=== PATIENT | female | born 1995 | race Caucasian/White ===

== ENCOUNTER 2024-01-30 15:25 | Emergency (ER) | payer SELFPAY ==
[~2024-01-30] VITALS: Ht 157.5 cm; Wt 90.7 kg
[2024-01-30 15:25] VITALS: BP 136/93; PULSE 136; RESP 18; TEMP 97.7; O2SAT 100
[2024-01-30] MEDS ORDERED: BENADRYL ONE (15:32)
[2024-01-30] MEDS ORDERED: PEPCID IV ONE (15:32)
[2024-01-30] MEDS ORDERED: SOLU-MEDROL ONE (15:32)
[2024-01-30] MEDS: PEPCID IV STA (15:43)
[2024-01-30] MEDS: SOLU-MEDROL IV STA (15:43)
[2024-01-30] MEDS: BENADRYL IV STA (15:43)
[2024-01-30] MEDS ORDERED: EPIN0.3P3 IM (16:15)
[2024-01-30 16:17] VITALS: BP 134/81; PULSE 105; RESP 18; TEMP 97.7; O2SAT 100
== END 2024-01-30 16:21 | disposition home or self-care (01) ==
LOC: ER 15:25
DX: T78.2XXA Anaphylactic shock, unspecified, initial encounter (principal); Z90.49 Acquired absence of other specified parts of digestive tract; Z88.5 Allergy status to narcotic agent; Y92.89 Other specified places as the place of occurrence of the external cause
CPT/HCPCS: 99291; 96374; 96375; J1200; J2919; J3490; J2930

== ENCOUNTER 2024-02-25 19:17 | Emergency (ER) | payer SELFPAY ==
[~2024-02-25] VITALS: Ht 157.5 cm; Wt 90.7 kg
[2024-02-25 19:17] VITALS: BP 147/96; PULSE 123; RESP 24; TEMP 98.6; O2SAT 96
[~2024-02-25 19:17] MED LIST: EPIN0.3P3 IM
[2024-02-25] MEDS ORDERED: BENADRYL ONE (19:31)
[2024-02-25] MEDS ORDERED: SOLU-MEDROL ONE (19:31)
[2024-02-25] MEDS ORDERED: PEPCID IV ONE (19:32)
[2024-02-25] MEDS: BENADRYL IV STA (19:37)
[2024-02-25] MEDS: PEPCID IV STA (19:37)
[2024-02-25] MEDS ORDERED: DECADRON ONE (19:38)
[2024-02-25] MEDS ORDERED: DUONEB 0.5-3(2.5) MG/3 ML IH ONE (19:38)
[2024-02-25] MEDS: SOLU-MEDROL IV STA (19:38)
[2024-02-25] MEDS: DECADRON IH STA (19:44)
[2024-02-25 19:45] VITALS: PULSE 122; RESP 18; O2SAT 97
[2024-02-25] MEDS: DUONEB 0.5-3(2.5) MG/3 ML IH STA (19:45)
[2024-02-25 20:00] VITALS: PULSE 124; RESP 18; O2SAT 98
[2024-02-25 20:22] VITALS: BP 122/64; PULSE 94; RESP 24; TEMP 98.6; O2SAT 96
[2024-02-25] MEDS ORDERED: PRED20TA PO (20:23)
== END 2024-02-25 20:29 | disposition home or self-care (01) ==
LOC: ER 19:17
DX: T78.40XA Allergy, unspecified, initial encounter (principal); Z90.49 Acquired absence of other specified parts of digestive tract; Z88.5 Allergy status to narcotic agent; X58.XXXA Exposure to other specified factors, initial encounter
CPT/HCPCS: 99284; 96374; 96375; 94640; J1200; J1100; J2919; J3490; J2930

== ENCOUNTER 2024-02-28 18:38 | Emergency (ER) | payer SELFPAY ==
[~2024-02-28] VITALS: Ht 157.5 cm; Wt 90.7 kg
[~2024-02-28 18:38] MED LIST changes: +PRED20TA PO
[2024-02-28] MEDS ORDERED: SOLU-MEDROL IV STA (18:46)
[2024-02-28] MEDS ORDERED: PEPCID IV STA (18:46)
[2024-02-28] MEDS ORDERED: SOLU-MEDROL ONE (18:49)
[2024-02-28] MEDS ORDERED: PEPCID IV ONE (18:50)
[2024-02-28 18:51] VITALS: BP 136/102; PULSE 107; RESP 30; TEMP 97.7; O2SAT 97
[2024-02-28] MEDS ORDERED: PEPCID ONE (18:59)
[2024-02-28] MEDS: SOLU-MEDROL IM STA (19:03)
[2024-02-28] MEDS: PEPCID PO STA (19:04)
[2024-02-28 19:39] VITALS: BP 120/63; PULSE 88; RESP 30; TEMP 97.7; O2SAT 98
== END 2024-02-28 19:43 | disposition home or self-care (01) ==
LOC: ER 18:38 → EDBD 18:38 → ER 19:43
DX: L50.9 Urticaria, unspecified (principal); Z90.49 Acquired absence of other specified parts of digestive tract; Z88.5 Allergy status to narcotic agent; Z91.010 Allergy to peanuts
CPT/HCPCS: 99284; 96372; J2919; J3490; J2930

== ENCOUNTER 2024-03-11 02:40 | Emergency (ER) | payer SELFPAY ==
[~2024-03-11] VITALS: Ht 157.5 cm; Wt 95.3 kg
[2024-03-11 02:40] VITALS: BP 192/113; PULSE 120; RESP 18; TEMP 98.3; O2SAT 7
[2024-03-11 03:05] LABS: BASOPHIL # 0.1 10^3/uL (0.0-0.1); BASOPHIL % 0.6 % (0.1-1.2); EOSINOPHIL # 0.1 10^3/uL (0.0-0.2); EOSINOPHIL % 1.2 % (0.0-5.0); HEMATOCRIT(ML) 40.5 % (36.0-46.0); HEMOGLOBIN 13.1 g/dL (12.0-15.0); LYMPHOCYTES # 2.26 10^3/uL1 (1.0-4.8); MEAN CORP HGB 26.8 pg (26-34); MEAN CORP HGB CONCENTRATION 32.3 g/dL (33-36.5); MEAN CORP VOLUME 82.8 fL (78-100); MONOCYTES # 0.5 10^3/uL (0.3-0.8); MONOCYTES % 5.4 % (5.0-12.0); NEUTROPHIL # 6.1 10^3/uL (1.8-7.7); NEUTROPHILS % 67.7 % (41.0-85.0); PLATELET COUNT 255 10^3/uL (150-400); RED BLOOD CELL 4.89 10^6/uL (4.00-5.20); RED CELL DISTRIBUTION WIDTH 13.9 % (11.5-14.5); WHITE BLOOD CELL 9.1 10^3/uL (4.5-11.0)
[2024-03-11 03:08] LABS: +ADD MANUAL DIFF(NO CHRG) NO
[2024-03-11] MEDS ORDERED: NS 1000ML 1,000 ML ONE (03:08)
[2024-03-11] MEDS ORDERED: KEPPRA 100 ML IV ONE (03:08)
[2024-03-11 03:25] LABS: ALANINE AMINOTRANSFERASE(ML) 20 U/L (12-78); ALBUMIN(ML) 3.7 g/dL (3.4-5.0); ALBUMIN/GLOBULIN RATIO 1.057; ALKALINE PHOSPHATASE 112 U/L (50-136); ANION GAP 16.2; ASPARTATE AMINO TRANSFERASE 13 U/L (0-35); CALCIUM 8.9 mg/dL (8.4-10.5); CREATININE SERUM 1.06 mg/dL (0.59-1.40); EST GFR, NON-AA 61.3 (>/=60); GLUCOSE 114 mg/dL (74-106); POTASSIUM 4.2 mmol/L (3.6-5.2); SODIUM 137 mmol/L (132-145)
[2024-03-11 03:26] LABS: TROPONIN I HIGH SENSITIVITY < 4 ng/L (0-50)
[2024-03-11] MEDS: KEPPRA 100 ML IV STA (03:26)
[2024-03-11] MEDS: NS 1000ML 1,000 ML STA (03:27)
[2024-03-11 03:42] VITALS: BP 152/89; PULSE 96; RESP 18; TEMP 98.3; O2SAT 7
[2024-03-11 04:36] VITALS: BP 157/83; PULSE 80; RESP 18; TEMP 98.3; O2SAT 7
[2024-03-11] MEDS ORDERED: DECADRON ONE (04:36)
[2024-03-11] MEDS: DECADRON IV STA (04:39)
== END 2024-03-11 04:51 | disposition home or self-care (01) ==
LOC: EEVIPCON 02:40 → ER 02:40
DX: G40.409 Other generalized epilepsy and epileptic syndromes, not intractable, without status epilepticus (principal); I10 Essential (primary) hypertension; Z90.49 Acquired absence of other specified parts of digestive tract; Z88.5 Allergy status to narcotic agent; Z91.010 Allergy to peanuts
CPT/HCPCS: 99285; 96365; 70450; 71045; 96375; 80053; 85025; 36415; 84484; 81025; 93005; J7030; J1100; J1953; 84703

== ENCOUNTER 2024-04-08 05:53 | Emergency (ER) | payer SELFPAY ==
[~2024-04-08] VITALS: Ht 154.9 cm; Wt 81.6 kg
[2024-04-08 06:05] VITALS: BP 164/109; PULSE 106; RESP 20; TEMP 98.4; O2SAT 96
[2024-04-08] MEDS ORDERED: KEPPRA 100 ML IV ONE (06:17)
[2024-04-08] MEDS ORDERED: NS 1000ML 1,000 ML ONE (06:17)
[2024-04-08 06:56] VITALS: BP 164/109; PULSE 97; RESP 20; TEMP 98.3
[2024-04-08 07:06] LABS: BASOPHIL % 0.7 % (0.1-1.2); EOSINOPHIL # 0.3 10^3/uL (0.0-0.2); EOSINOPHIL % 4.5 % (0.0-5.0); HEMATOCRIT(ML) 40.6 % (36.0-46.0); LYMPHOCYTES # 1.7 10^3/uL1 (1.0-4.8); LYMPHOCYTES % 28.2 % (24.0-44.0); MEAN CORP HGB 27.7 pg (26-34); MEAN CORP VOLUME 86.4 fL (78-100); MONOCYTES # 0.5 10^3/uL (0.3-0.8); MONOCYTES % 7.6 % (5.0-12.0); NEUTROPHIL # 3.6 10^3/uL (1.8-7.7); RED BLOOD CELL 4.7 10^6/uL (4.00-5.20); RED CELL DISTRIBUTION WIDTH 15.6 % (11.5-14.5)
[2024-04-08] MEDS: KEPPRA 100 ML IV STA (07:09)
[2024-04-08] MEDS: NS 1000ML 1,000 ML STA (07:09)
[2024-04-08 07:27] LABS: ALBUMIN(ML) 3.5 g/dL (3.4-5.0); POTASSIUM 3.8 mmol/L (3.6-5.2)
[2024-04-08 07:28] LABS: ALBUMIN/GLOBULIN RATIO 0.897
[2024-04-08 07:51] LABS: ANION GAP 10.9; BUN/CREATININE RATIO 10.34 (10.0-20.0); CALCIUM 8.6 mg/dL (8.4-10.5); CARBON DIOXIDE 26.9 mmol/L (20.0-32); CREATININE SERUM 0.58 mg/dL (0.59-1.40); EST GFR, NON-AA 122.9 (>/=60)
[2024-04-08 08:03] VITALS: BP 112/82; PULSE 89; RESP 20; TEMP 98.3
[2024-04-08 08:59] VITALS: BP 140/88; PULSE 91; RESP 20; O2SAT 93
== END 2024-04-08 09:05 | disposition home or self-care (01) ==
LOC: ER 05:53
DX: R56.9 Unspecified convulsions (principal); I10 Essential (primary) hypertension; Z90.49 Acquired absence of other specified parts of digestive tract; Z88.5 Allergy status to narcotic agent; Z91.010 Allergy to peanuts
CPT/HCPCS: 99284; 96365; 80053; 85025; 36415; 81025; 93005; J7030; J1953; 84703

== ENCOUNTER → 2024-12-07 | Outpatient (CLI) | payer OTHER | END | disposition home or self-care (01) | LOC: RAD 12:13 | PROVIDERS: ATTEND Student in an Organized Health Care Education/Training Program | DX: M25.572 Pain in left ankle and joints of left foot (principal) | CPT/HCPCS: 73590-LT; 73610-LT; 73630-LT ==